=== PATIENT | female | born 1955 | race Caucasian/White ===

== ENCOUNTER → 2022-05-18 | Outpatient (CLI) | payer OTHER ==
[~2022-05-18] MED LIST: ALOG25TA; ATOR40TA75; CALC500C16 PO; FAMO20TA5; GASTROGRAFIN SOLUTION 30ML As Ordered ONE; GLIP5TAB8; ISOVUE-370 76% 100ML VIAL As Ordered ONE; LEVO75TA4; LISI20TA33; METF10004; NOXI1TAB PO; OMEG10002 PO; VITMTA PO
== END ==
LOC: M RAD 15:38
PROVIDERS: ATTEND Specialist
DX: M50.30 Other cervical disc degeneration, unspecified cervical region (principal); K76.0 Fatty (change of) liver, not elsewhere classified; K59.00 Constipation, unspecified; E07.89 Other specified disorders of thyroid; R91.1 Solitary pulmonary nodule; N28.1 Cyst of kidney, acquired; C85.90 Non-Hodgkin lymphoma, unspecified, unspecified site

== ENCOUNTER → 2023-01-20 | Outpatient (CLI) | payer MEDICARE, OTHER ==
[~2023-01-20] MED LIST changes: -GASTROGRAFIN SOLUTION 30ML As Ordered ONE; +MELO7.5T35; +TRUL10IN
== END ==
LOC: M RAD 10:33
PROVIDERS: ATTEND Internal Medicine Hematology & Oncology
DX: C85.90 Non-Hodgkin lymphoma, unspecified, unspecified site (principal); R91.1 Solitary pulmonary nodule; K76.0 Fatty (change of) liver, not elsewhere classified
CPT/HCPCS: 71260; Q9967